=== PATIENT | female | born 1945 | race Hispanic/Latino ===

== ENCOUNTER 2018-12-09 18:25 | Inpatient (IN) | payer MEDICARE ==
[2018-12-09] MEDS ORDERED: Metoprolol Tartrate 5 MG/5 ML VIAL ONE ×2 (18:41→20:18)
[2018-12-09 18:57] LABS: #Basophils 0.1 thou/uL (0.0-0.2); #Eosinphils 0.1 thou/uL (0.0-0.7); #Lymphocytes 1.7 thou/uL (1.20-3.40); #Monocytes 0.7 thou/uL (0.11-0.59); #Neutrophils 14.1 thou/uL (1.40-6.50); %Basophils 0.4 % (0.0-1.0); %Eosinophils 0.5 % (0.0-10.0); %Lymphocytes 10.1 % (21.0-51.0); %Neutrophils 85.1 % (42.0-75.0); Hemoglobin 13.8 g/dL (12.0-16.0); Mean Corpuscular HGB CONC 32.8 g/dL (32.0-36.0); Mean Corpuscular Hemoglobin 29.8 pg (27.0-31.0); Mean Platelet Volume 9.8 fL (7.4-10.4); Platelet Count 232 thou/uL (130-400); RBC Distribution Width 12.6 % (11.5-14.5); Red Blood Cell (RBC) Count 4.62 mill/uL (4.20-5.40); White Blood Cell (WBC) Count 16.5 thou/uL (4.8-10.8)
[2018-12-09 19:17] LABS: ALT (SGPT) 10 U/L (8-55); AST (SGOT) 14 U/L (5-34); Albumin 4.6 g/dL (3.4-4.8); Alkaline Phosphatase 84 U/L (40-150); Anion Gap 19 mmol/L (10-20); BUN (Urea Nitrogen) 30 mg/dL (9.8-20.1); Bilirubin, Total 0.4 mg/dL (0.2-1.2); CK (CPK) 39 U/L (29-168); Calc. Creatinine Clearance 0 mL/min (70-130); Calcium 10.7 mg/dL (7.8-10.44); Carbon Dioxide 21 mmol/L (23-31); Chloride 100 mmol/L (98-107); Estimated GFR-MDRD 19; Globulin 3.3 g/dL (2.4-3.5); Glucose 206 mg/dL (83-110); Lipase 48 U/L (8-78); Potassium 4.4 mmol/L (3.5-5.1); Protein, Total 7.9 g/dL (6.0-8.3); Sodium 136 mmol/L (136-145)
--- NOTE | 2018-12-09 19:25 | RAD ---
PORTABLE CHEST: History: Chest pain, hypotension. Comparison: 06-13-17 FINDINGS: Heart size is enlarged. There are arthrosclerotic changes of the aorta. The lungs are clear of infilt rates. There are no signs of failure. IMPRESSION: Mild cardiomegaly. POS: H
[2018-12-09] MEDS ORDERED: Famotidine/PF 20 mg/2ml Vial ONE (21:04)
[2018-12-09] MEDS ORDERED: Ondansetron PF 4 MG/2 ML Vial ONE (21:47)
[2018-12-09 22:13] LABS: Troponin I 0.087 ng/mL (< 0.028)
[2018-12-09] MEDS ORDERED: Acetaminophen 325 MG TAB PO PRN (23:07)
[2018-12-09 23:11] VITALS: BMI 24.3
[2018-12-09 23:33] LABS: Lactic Acid 1.5 mmol/L (0.5-2.2)
[2018-12-09] MEDS: Diltiazem 125 MG in Sodium Chloride 0.9% 100 ML IVPB SCH (23:52)
[2018-12-10 00:54] LABS: Troponin I 0.257 ng/mL (< 0.028)
[2018-12-10] MEDS ORDERED: Dextrose 50% Abboject 50 ML SYRINGE SLOW IVP PRN (03:52)
[2018-12-10] MEDS ORDERED: Dextrose 5% in Water 1,000 ML IV PRN (03:52)
--- NOTE | 2018-12-10 04:50 | HP ---
PRIMARY CARE DOCTOR: Dr. Justin Zurita. CODE STATUS: DNR/DNI. TIME OF EVALUATION: 8:40 p.m. CHIEF COMPLAINT: Nausea and vomiting. HISTORY OF PRESENT ILLNESS: This 73-year-old female patient with past medical history of coronary artery disease, diabetes, hyperlipidemia, high cholesterol, and hypertension, came to the hospital after having nausea and vomiting associated with fatigue with no clear triggers, no alleviating factors. Symptoms are generalized, reported as moderate. REVIEW OF SYSTEMS: CONSTITUTIONAL: The patient had no fever, reported chills, generalized weakness. RESPIRATORY: No cough, sputum production, shortness of breath. CARDIOVASCULAR: No chest pain or palpitation. GASTROINTESTINAL: The patient has nausea and vomiting. No diarrhea. No abdominal pain. EMANATIONS ANALYSIS TECHNICIAN: No dizziness headache, or feeling lightheaded. GENITOURINARY: No burning on urination. EXTREMITIES: No leg swelling. All other systems were reviewed and negative except for the findings mentioned above. PAST MEDICAL HISTORY: As mentioned in the HPI. FAMILY HISTORY: Reviewed and non contributory to current presentation. SOCIAL HISTORY: No alcohol, no drugs, no smoking history. SURGICAL HISTORY: The patient has bilateral stent with repair, cholecystectomy. PSYCH HISTORY: No previous psych history. KNOWN ALLERGIES: No known drug allergies reported. MEDICATIONS: 1. Pravastatin. 2. Metformin. 3. Lisinopril. 4. Aspirin. PHYSICAL EXAMINATION: VITAL SIGNS: On presentation, blood pressure 109/79 with heart rate 157, respiratory rate was 20, temperature 97.3. Pain was 5/10. Oxygen saturation was 96% on room air. Initial presentation, blood pressure was 85/62. GENERAL APPEARANCE: The patient is alert, oriented, not in acute distress. HEENT: Eyes, normal conjunctiva. Moist oral mucosa. Anicteric. No JVD. RESPIRATORY: Bilateral air entry. No rales. No wheezes. Symmetric expansion. CARDIOVASCULAR: The patient has tachycardia, irregular rhythm. No murmurs, no gallops. No edema. ABDOMEN: Soft. Normal bowel sounds. MUSCULOSKELETAL: Baseline range of motion and strength. No tenderness. SKIN: Warm, intact. No pallor. No rash. No redness. Peripheral pulses are present. Capillary refill seems to be intact. NEURO: No evidence of any new focal weakness. Baseline speech. Cranial nerves seems to be intact. PSYCH: The patient is in good mood. No anxiety. Optimal judgment. DIAGNOSTIC DATA: EKG was reviewed. The patient has atrial fibrillation with rapid ventricular response at the rate of 150, ND undetermined, QRS 78, and QT corrected 470. The patient also has ST depression in lateral leads with some T-wave inversion, likely related to rates. Chest x-ray was reviewed. The patient has mild cardiomegaly. LABORATORY DATA: Labs were reviewed. The patient has white count 16.5, hemoglobin 13.8, MCV 91, platelet count 232. Chemistry; sodium 136, potassium 4.4, chloride 100, carbon dioxide was 21, anion gap 19, BUN 30, creatinine 2.44, previous creatinine was 2.22. The lactic acid initially was 3.7 and the second one was 1.5. LFTs were negative. Troponin was initially 0.021, the second one 0.087, the third one 0.257. Serum total protein 7.9. Beta-natriuretic peptide 905. Lipase was normal. Albumin 4.6. ASSESSMENT AND PLAN: The patient was placed in the hospital with following medical problems: 1. Atrial fibrillation with rapid ventricular response: The patient has been started on Cardizem drip, we will monitor. It has been difficult to control the rate of the patient. Cardiology consult, echo in the morning. 2. Leukocytosis, unclear etiology, no evidence of infection at this point. We will monitor closely. If there is any evidence of infection, we will treat. 3. Initial presentation with lactic acidosis of 3.7, came down to 1.5. The patient was hypotensive on presentation. This has not happened anymore, we will monitor. We will treat accordingly. 4. Chronic kidney disease. Creatinine is about the same range as in previous admissions. We will monitor kidney function. Might need Nephro if it gets worse. 5. Uncontrolled diabetes with blood sugar of 206. Hyperglycemia, we will place the patient on sliding scale for optimal control of the blood sugar. 6. Ylo-[id number] myocardial infarction, likely [id number] myocardial infarction type 2. The patient has leak of troponin likely secondary to underlying arrhythmias and demand ischemia. We will monitor. We will treat accordingly. 7. Hyperlipidemia, reconcile home medications. Low-cholesterol diet is advised. 8. Hypertension, has been uncontrolled and labile and usually with some hypotension. The patient is on Cardizem drip now. This will need to be reassessed when the patient is off the drip. For now, we will put the blood pressure medications on hold. 9. Deep venous thrombosis prophylaxis. Job ID: [id number] MTDD
[2018-12-10 06:27] LABS: #Eosinphils 0.2 thou/uL (0.0-0.7); #Lymphocytes 1.7 thou/uL (1.20-3.40); #Monocytes 0.5 thou/uL (0.11-0.59); #Neutrophils 5.2 thou/uL (1.40-6.50); %Basophils 0.6 % (0.0-1.0); %Eosinophils 2.3 % (0.0-10.0); %Lymphocytes 21.8 % (21.0-51.0); %Neutrophils 68.3 % (42.0-75.0); Mean Corpuscular HGB CONC 33.5 g/dL (32.0-36.0); Mean Corpuscular Hemoglobin 30.2 pg (27.0-31.0); Mean Corpuscular Volume 90.3 fL (78.0-98.0); Mean Platelet Volume 9.8 fL (7.4-10.4); Platelet Count 176 thou/uL (130-400); RBC Distribution Width 12.4 % (11.5-14.5); Red Blood Cell (RBC) Count 3.63 mill/uL (4.20-5.40); White Blood Cell (WBC) Count 7.7 thou/uL (4.8-10.8)
[2018-12-10 06:48] LABS: Anion Gap 15 mmol/L (10-20); BUN (Urea Nitrogen) 32 mg/dL (9.8-20.1); Calc. Creatinine Clearance 20 mL/min (70-130); Calcium 9.2 mg/dL (7.8-10.44); Carbon Dioxide 21 mmol/L (23-31); Chloride 106 mmol/L (98-107); Estimated GFR-MDRD 21; Glucose 100 mg/dL (83-110); Potassium 4.8 mmol/L (3.5-5.1); Sodium 137 mmol/L (136-145)
[2018-12-10] MEDS ORDERED: Aspirin 325 MG TAB PO SCH (08:00)
[2018-12-10] MEDS ORDERED: Enoxaparin Sodium 40 MG/0.4 ML SYRINGE SC SCH (09:00)
[2018-12-10] MEDS: Atorvastatin Calcium 10 MG TAB PO SCH (09:43)
--- NOTE | 2018-12-10 11:29 | PDOC.PN ---
- Subjective Encounter Start Date: 12/10/18 Encounter Start Time: 11:05 Subjective: Patient resting comfortably. Denies any complaints. -: Feels back to baseline. No further lightheadedness/dizziness. -: Episode of loose stool this morning. No n/v. No abdo pain. Has been afebrile. Reports yesterday she felt completely well in herself until told she had the incorrect information when picking up a certificate for her family member. States she immediately felt unwell. Presyncope, vomited x 1 at the facility, [facility]. Had trouble with her vision and feeling lightheaded. No HEADLEY. No Chest pain. Reports feeling unwell the entire drive. Vomited twice en route home. Upon arriving at home was very weak and lethargic. She was falling asleep while examined by daughter who is an RN. Reportedly her HR was elevated and her O2 sat was low prompting her to seek medical attention. - Objective Resuscitation Status - Order Detail: 12/09/18 23:07 Resuscitation Status Routine Resuscitation Status: DNAR: NO Resuscitation Discussed with: discussed with family and patient Vital Signs & Weight: Vital Signs (12 hours) Temp Pulse Resp BP BP Pulse Ox 12/10/18 08:15 94 14 110/57 L 94 L 12/10/18 04:37 98.9 F 86 13 111/57 L 96 12/09/18 23:52 147 H 111/77 Weight Weight 128 lb 14.4 oz I&O: 12/09/18 12/10/18 12/11/18 06:59 06:59 06:59 Intake Total 151.4 Output Total 200 Balance -48.6 Result Diagrams: 12/10/18 05:07 12/10/18 05:07 Additional Labs: Accuchecks 12/10/18 04:52 POC Glucose 97 Phys Exam - Physical Examination Constitutional: NAD HEENT: PERRLA, moist MMs, oral pharynx no lesions Neck: no nodes, no JVD, supple, full ROM Respiratory: no wheezing, no rales, no rhonchi, clear to auscultation bilateral Cardiovascular: RRR, no significant murmur Gastrointestinal: soft, non-tender, no distention, positive bowel sounds Musculoskeletal: no edema, pulses present Neurological: normal sensation, moves all 4 limbs Lymphatic: no nodes Psychiatric: normal affect, A&O x 3 Skin: no rash, normal turgor Dx/Plan (1) A-fib Code(s): I48.91 - UNSPECIFIED ATRIAL FIBRILLATION Status: Acute (2) Tachycardia Code(s): R00.0 - TACHYCARDIA, UNSPECIFIED Status: Resolved (3) Atrial fibrillation with RVR Code(s): I48.91 - UNSPECIFIED ATRIAL FIBRILLATION Status: Chronic (4) Diabetes Code(s): E11.9 - TYPE 2 DIABETES MELLITUS WITHOUT COMPLICATIONS Status: Chronic (5) Hypertension Code(s): I10 - ESSENTIAL (PRIMARY) HYPERTENSION Status: Chronic (6) Hyperlipidemia Code(s): E78.5 - HYPERLIPIDEMIA, UNSPECIFIED Status: Chronic - Plan cont current plan of care, plan discussed w/ family Leukocytosis resolved. Afebrile and with negative BCx. Monitor. -: HR has settled. BNP 905.8 S/p Echo, awaiting Cardiology review. -: BP controlled, continue to monitor. -: Gentle IV hdyration. Monitor glucose. -: Check Mg+, lipid panel and TSH. To be discussed with Dr. Foley for further recommendations. ADDENDUM: Per discussion with Dr. Foley, given [id number] Score of 5, will increase prophylactic dose of Lovenox to 60 mg SC BID (weight 58 kg). Patient feeling well and awaiting Cardiology review.
[2018-12-10] MEDS ORDERED: Ondansetron PF 4 MG/2 ML Vial IVP PRN (11:40)
[2018-12-10] MEDS ORDERED: Ondansetron ODT 4 MG TAB PO PRN (11:40)
[2018-12-10 12:16] LABS: Cardiac Risk 3.4 (Less than 4.5); Magnesium 1.6 mg/dL (1.6-2.6)
[2018-12-10] MEDS: Sodium Chloride 0.9% 1,000 ML IV SCH (13:00)
[2018-12-10 13:26] LABS: Bilirubin Small (Negative); Blood, Urine Negative (Negative); Clarity CLEAR (Clear); Glucose, Urine (Dipstick) Negative (Negative); Leukocyte Moderate (Negative); Nitrite Negative (Negative); Protein, Urine (Dipstick) Trace mg/dL (Neg-Trace); Specific Gravity, Urine 1.018 (1.002-1.036)
[2018-12-10 13:27] LABS: Bacteria/HPF None Seen HPF (None Seen); Hyaline Casts/LPF 7-10 HYALINE CAST LPF (0-3 Hyaline); Pathc Cast-AUWi Flag 1.01 (0-2.49)
[2018-12-10 13:44] LABS: Renal Epithelial None Seen HPF (0-3); Transitional Epithelial NONE SEEN HPF (0-3)
[2018-12-10 13:46] LABS: Urine Culture Reflex No No
--- NOTE | 2018-12-10 14:35 | PDOC.EVN ---
Event Note - Event Note Event Note: pt seen and discussed w PHILL Ms ankita cont CCB drip.HD stable HR better controlled. ECHO and cardiology consult awaited will likley need OAC given high CHADS-vasc2 score.defer to cardiology.on full dose ASA and Statin
[2018-12-10] MEDS: HumaLOG 300 UNITS/3 ML VIAL SC PRN (18:21)
[2018-12-10] MEDS ORDERED: Enoxaparin Sodium 60 MG/0.6 ML SYRINGE SC SCH ×2 (21:00)
[2018-12-10] MEDS ORDERED: Dronedarone HCl 400 MG TAB PO SCH (21:15)
[2018-12-10] MEDS: Diltiazem 125 MG in Sodium Chloride 0.9% 100 ML IVPB SCH (22:37)
--- NOTE | 2018-12-11 00:49 | CON ---
DATE OF CONSULTATION: HISTORY OF PRESENT ILLNESS: Skye Boyd is a pleasant 73-year-old female with history of significant peripheral vascular disease with multiple procedures by Dr. Payne in the past. She states she has never had any cardiac problems, has never had coronary artery disease or any type of procedure done on her heart, just in her peripheral vessels. Yesterday, a little before noon, she had an onset of nausea, vomiting, fatigue and extreme weakness. The daughter states that she looked very pale. She was brought to the emergency room and found to be in atrial fibrillation with fast ventricular response of 150 per minute. She denied any chest discomfort or shortness of breath. She also denied any palpitations. PAST MEDICAL HISTORY: Hypertension. Hypercholesterolemia. Diabetes. Obesity. Peripheral vascular disease. MEDICATIONS: 1. Aspirin 325 daily. 2. Lisinopril/hydrochlorothiazide 20 daily. 3. Metformin 1000 mg b.i.d. 4. Pravastatin 40 at bedtime. PAST SURGICAL HISTORY: Multiple stent procedures on her legs by Dr. Payne, cholecystectomy. SOCIAL HISTORY: She stopped smoking 20 years ago. She does not drink alcohol. REVIEW OF SYSTEMS: A 12-point review of systems is otherwise unremarkable. ALLERGIES: NONE. PHYSICAL EXAMINATION: VITAL SIGNS: Blood pressure 129/68, pulse of 87, irregularly irregular. She is on a Cardizem drip. HEENT: PERRL. NECK: Supple. CHEST: Clear. CARDIAC: S1 and S2 normal without any S3, S4 or murmurs. ABDOMEN: Obese. Normal bowel sounds. No tenderness or organomegaly. EXTREMITIES: Revealed no clubbing, cyanosis, or edema. NEUROLOGICAL: Grossly intact. SKIN: Warm and dry. IMAGING: EKG revealed atrial fibrillation with a rate of 150 per minute with anterolateral T-wave changes. No repeat EKG has been performed. LABORATORY DATA: Sodium 137, potassium 4.8, chloride 106, carbon dioxide 21, BUN 32, creatinine 2.27. Cholesterol 151, triglycerides 143, HDL 44, LDL 78. TSH is normal. Troponin I 0.257. BNP 905.8. IMPRESSION: 1. Atrial fibrillation with rapid ventricular response. This appears to be new onset and apparently she has never had this in the past. 2. Significant peripheral vascular disease, status post multiple procedures by Dr. Payne. 3. Hypercholesterolemia, poorly control with an LDL of 78. 4. Chronic kidney disease. 5. Diabetes. 6. Hypertension. 7. Demand ischemia. 8. Former smoker. PLAN: Echocardiogram will be performed. She will be started on Xarelto 15 mg daily for stroke prophylaxis. Aspirin dose reduced to 81 mg. She will be loaded with Multaq and consideration will be given to electrocardioversion in 2 to 3 days after she has been loaded. EKG will be repeated. Job ID: [id number] MTDD
[2018-12-11 05:47] LABS: #Eosinphils 0.2 thou/uL (0.0-0.7); #Lymphocytes 1.5 thou/uL (1.20-3.40); #Monocytes 0.4 thou/uL (0.11-0.59); #Neutrophils 2.7 thou/uL (1.40-6.50); %Basophils 0.3 % (0.0-1.0); %Eosinophils 4.8 % (0.0-10.0); %Lymphocytes 30.6 % (21.0-51.0); %Monocytes 7.5 % (0.0-10.0); %Neutrophils 56.8 % (42.0-75.0); Hemoglobin 9.7 g/dL (12.0-16.0); Mean Corpuscular HGB CONC 32.9 g/dL (32.0-36.0); Mean Corpuscular Hemoglobin 30.3 pg (27.0-31.0); Mean Corpuscular Volume 92.1 fL (78.0-98.0); Mean Platelet Volume 9.5 fL (7.4-10.4); Platelet Count 138 thou/uL (130-400); RBC Distribution Width 12.4 % (11.5-14.5); Red Blood Cell (RBC) Count 3.19 mill/uL (4.20-5.40); White Blood Cell (WBC) Count 4.8 thou/uL (4.8-10.8)
[2018-12-11 06:08] LABS: ALT (SGPT) Less than 7 U/L (8-55); AST (SGOT) 11 U/L (5-34); Albumin 3.3 g/dL (3.4-4.8); Alkaline Phosphatase 56 U/L (40-150); Anion Gap 13 mmol/L (10-20); BUN (Urea Nitrogen) 31 mg/dL (9.8-20.1); Bilirubin, Total 0.3 mg/dL (0.2-1.2); Calc. Creatinine Clearance 0 mL/min (70-130); Calcium 8.9 mg/dL (7.8-10.44); Carbon Dioxide 20 mmol/L (23-31); Chloride 109 mmol/L (98-107); Estimated GFR-MDRD 28; Globulin 2.2 g/dL (2.4-3.5); Glucose 117 mg/dL (83-110); Potassium 4.2 mmol/L (3.5-5.1); Protein, Total 5.5 g/dL (6.0-8.3); Sodium 138 mmol/L (136-145)
[2018-12-11] MEDS: Sodium Chloride 0.9% 1,000 ML IV SCH (07:52)
[2018-12-11] MEDS ORDERED: Famotidine/PF 20 mg/2ml Vial SLOW IVP SCH (09:00)
[2018-12-11] MEDS: Atorvastatin Calcium 10 MG TAB PO SCH (09:27)
[2018-12-11] MEDS: Aspirin 81 mg Enteric Coated Tablet PO SCH (09:27)
[2018-12-11] MEDS: Dronedarone HCl 400 MG TAB PO SCH ×2 (09:27→17:27)
[2018-12-11] MEDS: Rivaroxaban 15 MG TAB PO SCH (09:27)
--- NOTE | 2018-12-11 10:38 | PDOC.PN ---
- Subjective Encounter Start Date: 12/11/18 Encounter Start Time: 09:30 Subjective: Patient examined, reports she got up to the bathroom -: and got a little winded. Refused the walking program. -: Denies chest pain, palpations. - Objective Resuscitation Status - Order Detail: 12/11/18 00:48 Resuscitation Status Routine Resuscitation Status: FULL: Full Resuscitation Vital Signs & Weight: Vital Signs (12 hours) Temp Pulse Resp BP BP Pulse Ox 12/11/18 07:50 98.5 F 75 12 106/66 99 12/11/18 04:00 97.8 F 78 16 98/57 L 98 12/10/18 23:47 98.1 F 83 18 108/59 L 98 Weight Weight 123.3 g I&O: 12/10/18 12/11/18 12/12/18 06:59 06:59 06:59 Intake Total 151.4 2406 412 Output Total 200 600 Balance -48.6 1806 412 Result Diagrams: 12/11/18 04:38 12/11/18 04:38 Additional Labs: Accuchecks 12/11/18 12/10/18 12/10/18 05:54 20:06 17:03 POC Glucose 118 H 148 H 202 H 12/10/18 12:05 POC Glucose 143 H Phys Exam - Physical Examination HEENT: PERRLA, moist MMs Neck: no nodes, no JVD Respiratory: clear to auscultation bilateral Cardiovascular: RRR, no significant murmur Gastrointestinal: soft, non-tender Musculoskeletal: no edema, pulses present Neurological: non-focal, normal sensation Lymphatic: no nodes Psychiatric: normal affect, A&O x 3 Skin: no rash, normal turgor Dx/Plan (1) Atrial fibrillation with RVR Code(s): I48.91 - UNSPECIFIED ATRIAL FIBRILLATION Status: Acute (2) Diabetes Code(s): E11.9 - TYPE 2 DIABETES MELLITUS WITHOUT COMPLICATIONS Status: Chronic (3) Hyperlipidemia Code(s): E78.5 - HYPERLIPIDEMIA, UNSPECIFIED Status: Chronic (4) Hypertension Code(s): I10 - ESSENTIAL (PRIMARY) HYPERTENSION Status: Chronic - Plan Patient is still on a cardizem drip, Dr. Moon added Multaq -: He is considering cardioversion if medications do not improve RVR -: We will continue to follow with cardiology -: Will repeat labs, monitor VS * .Addendum by Dr. Foley(late entry) * pt seen & examined by myself. Discussed w Ms DE LEON,FOOD CONSULTANT. Agree as above
[2018-12-11] MEDS: HumaLOG 300 UNITS/3 ML VIAL SC PRN (13:51)
[2018-12-12] MEDS: Diltiazem 125 MG in Sodium Chloride 0.9% 100 ML IVPB SCH (02:25)
[2018-12-12] MEDS: Sodium Chloride 0.9% 1,000 ML IV SCH ×2 (02:25→22:42)
[2018-12-12] MEDS: Rivaroxaban 15 MG TAB PO SCH (08:40)
[2018-12-12] MEDS: Atorvastatin Calcium 10 MG TAB PO SCH (08:40)
[2018-12-12] MEDS: Dronedarone HCl 400 MG TAB PO SCH ×2 (08:40→17:38)
[2018-12-12] MEDS: Aspirin 81 mg Enteric Coated Tablet PO SCH (08:40)
--- NOTE | 2018-12-12 12:03 | PDOC.CTH ---
Cardiology Progress Note - Subjective The pt seen and examined. NO overnight events. No cardiac complaints. - Objective Vital Signs Temp Pulse Resp BP Pulse Ox 12/12/18 04:18 98.1 F 76 18 115/76 97 Weight 4.349 oz 12/11/18 12/12/18 12/13/18 06:59 06:59 06:59 Intake Total 2406 2153 Output Total 600 1400 Balance 1806 753 - Physical Examination General/Neuro: alert & oriented x3 Neck: no JVD present Lungs: CTA Heart: other: (Irregular) Abdomen: soft Extremities: other: - Telemetry Telemetry Rhythm: No edema - Labs Result Diagrams: 12/11/18 04:38 12/11/18 04:38 Troponin/CKMB Troponin I 0.257 ng/mL (< 0.028) H 12/10/18 00:19 - Assessment/Plan 1. Afib with RVR - well controlled HR with Multaq; on Xarelto 15mg; Plan for JOSE LUIS /DCCV on Friday by Dr Moon 2. PVD with multiple procedures - stable 3. HTN - stable 4. CKD - improving 5. DM type 2 - managed by PCP 6. Hyperlipidemia - on Lipitor 10mg qd MAR reviewed * Echo on 12/10/2018 - EF 55-60%, mild MR, mild dilated LA, and mild TR * Plan for JOSE LUIS/DCCV on Friday by Dr Moon Review of Systems - Review of Systems Constitutional: reports: no symptoms reported EENTM: reports: no symptoms reported Respiratory: reports: no symptoms reported Cardiac (ROS): reports: no symptoms reported ABD/GI: reports: no symptoms reported : reports: no symptoms reported Musculoskeletal: reports: no symptoms reported Skin: reports: no symptoms reported
--- NOTE | 2018-12-12 13:59 | PDOC.PN ---
- Subjective Encounter Start Date: 12/12/18 Encounter Start Time: 13:57 Subjective: feels well. no new complaints - Objective Resuscitation Status - Order Detail: 12/11/18 00:48 Resuscitation Status Routine Resuscitation Status: FULL: Full Resuscitation MAR Reviewed: Yes Vital Signs & Weight: Vital Signs (12 hours) Temp Pulse Resp BP Pulse Ox 12/12/18 12:00 98 F 88 16 110/63 100 12/12/18 04:18 98.1 F 76 18 115/76 97 Weight Weight 4.349 oz I&O: 12/11/18 12/12/18 12/13/18 06:59 06:59 06:59 Intake Total 2406 2153 Output Total 600 1400 Balance 1806 753 Result Diagrams: 12/11/18 04:38 12/11/18 04:38 Additional Labs: Accuchecks 12/12/18 12/12/18 12/11/18 10:47 05:29 20:52 POC Glucose 141 H 108 142 H 12/11/18 17:05 POC Glucose 100 Microbiology 12/09/18 19:33 Venous blood - Right Arm Blood Culture - Preliminary Specimen has been received and culture in progress. No Growth to date. 12/09/18 19:33 Venous blood - Right Arm Blood Culture - Preliminary NO GROWTH AT 48 HOURS 12/09/18 18:39 Venous blood - Right Arm Blood Culture - Preliminary Specimen has been received and culture in progress. No Growth to date. 12/09/18 18:39 Venous blood - Right Arm Blood Culture - Preliminary NO GROWTH AT 48 HOURS Laboratory Tests 12/09/18 12/09/18 12/10/18 18:39 21:37 00:19 Troponin I 0.021 0.087 H 0.257 H Phys Exam - Physical Examination Constitutional: NAD HEENT: PERRLA, moist MMs, sclera anicteric, TM's clear, oral pharynx no lesions , 2+ tonsils Neck: no nodes, no JVD, supple, full ROM Respiratory: no wheezing, no rales, no rhonchi Cardiovascular: RRR, no significant murmur, irregular Gastrointestinal: soft, non-tender, no distention, positive bowel sounds Musculoskeletal: no edema, pulses present Neurological: non-focal, normal sensation, moves all 4 limbs Psychiatric: normal affect, A&O x 3 Skin: no rash Dx/Plan (1) Atrial fibrillation with RVR Code(s): I48.91 - UNSPECIFIED ATRIAL FIBRILLATION Status: Acute Comment: rate controlled w Multaq .on .DCCV on Friday (2) Diabetes Code(s): E11.9 - TYPE 2 DIABETES MELLITUS WITHOUT COMPLICATIONS Status: Chronic (3) Hyperlipidemia Code(s): E78.5 - HYPERLIPIDEMIA, UNSPECIFIED Status: Chronic (4) Hypertension Code(s): I10 - ESSENTIAL (PRIMARY) HYPERTENSION Status: Chronic - Plan DVT proph w/SCDs HD stable. Cont meds as above -: CV friday per cardiology -: ECHO w adequate EF * . Review of Systems - Review of Systems Constitutional: negative: fever, chills, sweats, weakness, malaise, other ENT: negative: Ear Pain, Ear Discharge, Nose Pain, Nose Discharge, Nose Congestion, Mouth Pain, Mouth Swelling, Throat Pain, Throat Swelling, Other Respiratory: negative: Cough, Dry, Shortness of Breath, Hemoptysis, SOB with Excertion, Pleuritic Pain, Sputum, Wheezing Cardiovascular: negative: chest pain, palpitations, orthopnea, paroxysmal nocturnal dyspnea, edema, light headedness, other Gastrointestinal: negative: Nausea, Vomiting, Abdominal Pain, Diarrhea, Constipation, Melena, Hematochezia, Other Genitourinary: negative: Dysuria, Frequency, Incontinence, Hematuria, Retention , Other Musculoskeletal: negative: Neck Pain, Shoulder Pain, Arm Pain, Back Pain, Hand Pain, Leg Pain, Foot Pain, Other Neurological: negative: Weakness, Numbness, Incoordination, Change in Speech, Confusion, Seizures, Other - Medications/Allergies Allergies/Adverse Reactions: Allergies Allergy/AdvReac Type Severity Reaction Status Date / Time clopidogrel [From Plavix] Allergy Rash Verified 12/09/18 23:27 Medications: Current Medications Acetaminophen (Tylenol) 650 mg PO Q4H PRN PRN Reason: Headache/Fever/Mild Pain (1-3) Aspirin (Ecotrin) 81 mg PO DAILY [facility] Last Admin: 12/12/18 08:40 Dose: 81 mg Atorvastatin Calcium (Lipitor) 10 mg PO DAILY [facility] Last Admin: 12/12/18 08:40 Dose: 10 mg Dextrose/Water (Dextrose 50%) 25 gm SLOW IVP PRN PRN PRN Reason: Hypoglycemia Dronedarone (Multaq) 400 mg PO BID-[facility] Last Admin: 12/12/18 08:40 Dose: 400 mg Glucagon (Glucagon) 1 mg IM PRN PRN PRN Reason: Hypoglycemia Dextrose/Water (D5w) 1,000 mls @ 0 mls/hr IV .Q0M PRN PRN Reason: Hypoglycemia Sodium Chloride (Normal Saline 0.9%) 1,000 mls @ 55 mls/hr IV .[id number] [facility] Last Admin: 12/12/18 02:25 Dose: 1,000 mls Insulin Human Lispro (Humalog) 0 units SC .MILD SLIDING SCALE PRN PRN Reason: Mild Correctional Scale Last Admin: 12/11/18 13:51 Dose: 3 unit Ondansetron HCl (Zofran Odt) 4 mg PO Q6H PRN PRN Reason: Nausea/Vomiting Ondansetron HCl (Zofran) 4 mg IVP Q6H PRN PRN Reason: Nausea/Vomiting Rivaroxaban (Xarelto) 15 mg PO DAILY [facility] Last Admin: 12/12/18 08:40 Dose: 15 mg
[2018-12-13 06:40] LABS: Anion Gap 8 mmol/L (10-20); BUN (Urea Nitrogen) 20 mg/dL (9.8-20.1); Calc. Creatinine Clearance 0 mL/min (70-130); Calcium 9.1 mg/dL (7.8-10.44); Carbon Dioxide 24 mmol/L (23-31); Chloride 111 mmol/L (98-107); Estimated GFR-MDRD 37; Glucose 108 mg/dL (83-110); Potassium 4.4 mmol/L (3.5-5.1); Sodium 139 mmol/L (136-145)
[2018-12-13] MEDS: Dronedarone HCl 400 MG TAB PO SCH ×2 (09:21→17:26)
[2018-12-13] MEDS: Aspirin 81 mg Enteric Coated Tablet PO SCH (09:22)
[2018-12-13] MEDS: Atorvastatin Calcium 10 MG TAB PO SCH (09:22)
[2018-12-13] MEDS: Rivaroxaban 15 MG TAB PO SCH (09:22)
--- NOTE | 2018-12-13 11:26 | PDOC.CTH ---
Cardiology Progress Note - Subjective The pt seen and examined. No overnight events. No cardiac complaints. - Objective Vital Signs Temp Pulse Resp BP Pulse Ox 12/13/18 07:57 98.7 F 77 16 177/84 H 94 L 12/13/18 03:59 98 F 80 17 160/75 H 96 Weight 4.349 oz 12/12/18 12/13/18 12/14/18 06:59 06:59 06:59 Intake Total 2153 3317 Output Total 1400 1500 Balance 753 1817 - Physical Examination General/Neuro: alert & oriented x3 Neck: no JVD present Lungs: CTA Heart: RRR Abdomen: soft Extremities: other: (No edema) - Telemetry Telemetry Rhythm: SR - Labs Result Diagrams: 12/11/18 04:38 12/13/18 05:02 Troponin/CKMB Troponin I 0.257 ng/mL (< 0.028) H 12/10/18 00:19 - Assessment/Plan 1. Afib with RVR - Converted back to SR on 12/12/2018 afternoon; On Multaq and on Xarelto 15mg; Plan for JOSE LUIS/DCCV on Friday by Dr Mono 2. PVD with multiple procedures - stable 3. HTN - Start Coreg 6.25mg BID from today for HTN and Afib. Holding MENA for now for FARHAT on CKD 4. CKD - improving 5. DM type 2 - managed by PCP 6. Hyperlipidemia - on Lipitor 10mg qd MAR reviewed * Echo on 12/10/2018 - EF 55-60%, mild MR, mild dilated LA, and mild TR * Plan for JOSE LUIS/DCCV on Friday by Dr Moon Pt. seen and eval. by me. She has converted to NSR and remains in NSR. She feels better, no complaints. Chest clear. RRR.I agree with the above assessment. Review of Systems - Review of Systems Constitutional: reports: no symptoms reported EENTM: reports: no symptoms reported Respiratory: reports: no symptoms reported Cardiac (ROS): reports: no symptoms reported ABD/GI: reports: no symptoms reported : reports: no symptoms reported
[2018-12-13] MEDS ORDERED: Carvedilol 6.25 MG TAB PO SCH (12:00)
[2018-12-13] MEDS ORDERED: hydrALAZINE 20 MG/ML VIAL SLOW IVP PRN (12:09)
[2018-12-13] MEDS ORDERED: Lisinopril 10 MG TAB PO SCH (12:15)
[2018-12-13] MEDS: HumaLOG 300 UNITS/3 ML VIAL SC PRN (12:20)
--- NOTE | 2018-12-13 12:21 | PDOC.PN ---
- Subjective Encounter Start Date: 12/13/18 Encounter Start Time: 12:20 Subjective: feels well. eager to go home -: no new complaints -: remains in sinus rythm - Objective Resuscitation Status - Order Detail: 12/11/18 00:48 Resuscitation Status Routine Resuscitation Status: FULL: Full Resuscitation MAR Reviewed: Yes Vital Signs & Weight: Vital Signs (12 hours) Temp Pulse Resp BP Pulse Ox 12/13/18 11:28 97.9 F 84 18 182/79 H 99 12/13/18 07:57 98.7 F 77 16 177/84 H 94 L 12/13/18 03:59 98 F 80 17 160/75 H 96 Weight Weight 4.349 oz I&O: 12/12/18 12/13/18 12/14/18 06:59 06:59 06:59 Intake Total 2153 3317 Output Total 1400 1500 Balance 753 1817 Result Diagrams: 12/11/18 04:38 12/13/18 05:02 Additional Labs: Accuchecks 12/13/18 12/13/18 12/12/18 10:55 05:03 20:30 POC Glucose 188 H 112 H 144 H 12/12/18 16:20 POC Glucose 103 Microbiology 12/09/18 19:33 Venous blood - Right Arm Blood Culture - Preliminary NO GROWTH AT 48 HOURS 12/09/18 18:39 Venous blood - Right Arm Blood Culture - Preliminary NO GROWTH AT 48 HOURS Phys Exam - Physical Examination Constitutional: NAD HEENT: PERRLA, moist MMs, sclera anicteric, oral pharynx no lesions Neck: no nodes, no JVD, supple, full ROM Respiratory: no wheezing, no rales, no rhonchi, clear to auscultation bilateral Cardiovascular: RRR, no significant murmur, no rub Gastrointestinal: soft, non-tender, no distention, positive bowel sounds Musculoskeletal: no edema, pulses present Neurological: non-focal, normal sensation, moves all 4 limbs Psychiatric: normal affect, A&O x 3 Skin: no rash Dx/Plan (1) Atrial fibrillation with RVR Code(s): I48.91 - UNSPECIFIED ATRIAL FIBRILLATION Status: Acute Comment: Sinus rythm since yesterday afternoon. On Multaq & on eliquis. (2) Diabetes Code(s): E11.9 - TYPE 2 DIABETES MELLITUS WITHOUT COMPLICATIONS Status: Chronic (3) Hyperlipidemia Code(s): E78.5 - HYPERLIPIDEMIA, UNSPECIFIED Status: Chronic (4) Hypertension Code(s): I10 - ESSENTIAL (PRIMARY) HYPERTENSION Status: Chronic - Plan DVT proph w/SCDs BP high. started on Coreg today . will add low dose lisinopril as Cr better -: no HCTZ .pt has CKD. -: awaiting final Cardiology recs.original plans for DCCV tomorrow but NSR now -: Hd stable * . Review of Systems - Review of Systems Constitutional: negative: fever, chills, sweats, weakness, malaise, other ENT: negative: Ear Pain, Ear Discharge, Nose Pain, Nose Discharge, Nose Congestion, Mouth Pain, Mouth Swelling, Throat Pain, Throat Swelling, Other Respiratory: negative: Cough, Dry, Shortness of Breath, Hemoptysis, SOB with Excertion, Pleuritic Pain, Sputum, Wheezing Cardiovascular: negative: chest pain, palpitations, orthopnea, paroxysmal nocturnal dyspnea, edema, light headedness, other Gastrointestinal: negative: Nausea, Vomiting, Abdominal Pain, Diarrhea, Constipation, Melena, Hematochezia, Other Genitourinary: negative: Dysuria, Frequency, Incontinence, Hematuria, Retention , Other Neurological: negative: Weakness, Numbness, Incoordination, Change in Speech, Confusion, Seizures, Other - Medications/Allergies Allergies/Adverse Reactions: Allergies Allergy/AdvReac Type Severity Reaction Status Date / Time clopidogrel [From Plavix] Allergy Rash Verified 12/09/18 23:27 Medications: Current Medications Acetaminophen (Tylenol) 650 mg PO Q4H PRN PRN Reason: Headache/Fever/Mild Pain (1-3) Aspirin (Ecotrin) 81 mg PO DAILY [facility] Last Admin: 12/13/18 09:22 Dose: 81 mg Atorvastatin Calcium (Lipitor) 10 mg PO DAILY [facility] Last Admin: 12/13/18 09:22 Dose: 10 mg Carvedilol (Coreg) 6.25 mg PO BID-[facility] Carvedilol (Coreg) 6.25 mg PO 1200 [facility] Stop: 12/13/18 13:00 Dextrose/Water (Dextrose 50%) 25 gm SLOW IVP PRN PRN PRN Reason: Hypoglycemia Dronedarone (Multaq) 400 mg PO BID-[facility] Last Admin: 12/13/18 09:21 Dose: 400 mg Glucagon (Glucagon) 1 mg IM PRN PRN PRN Reason: Hypoglycemia Hydralazine HCl (Apresoline) 10 mg SLOW IVP Q4H PRN PRN Reason: sbp>170 Dextrose/Water (D5w) 1,000 mls @ 0 mls/hr IV .Q0M PRN PRN Reason: Hypoglycemia Insulin Human Lispro (Humalog) 0 units SC .MILD SLIDING SCALE PRN PRN Reason: Mild Correctional Scale Last Admin: 12/11/18 13:51 Dose: 3 unit Lisinopril (Zestril) 5 mg PO BID [facility] Ondansetron HCl (Zofran Odt) 4 mg PO Q6H PRN PRN Reason: Nausea/Vomiting Ondansetron HCl (Zofran) 4 mg IVP Q6H PRN PRN Reason: Nausea/Vomiting Rivaroxaban (Xarelto) 15 mg PO DAILY [facility] Last Admin: 12/13/18 09:22 Dose: 15 mg
[2018-12-13] MEDS: Carvedilol 6.25 MG TAB PO SCH (17:26)
[2018-12-13] MEDS: Lisinopril 5 MG TAB PO SCH (20:02)
[2018-12-14] MEDS: Rivaroxaban 15 MG TAB PO SCH (09:06)
[2018-12-14] MEDS: Carvedilol 6.25 MG TAB PO SCH ×2 (09:06→17:56)
[2018-12-14] MEDS: Dronedarone HCl 400 MG TAB PO SCH ×2 (09:06→17:55)
[2018-12-14] MEDS: Aspirin 81 mg Enteric Coated Tablet PO SCH (09:07)
[2018-12-14] MEDS: Atorvastatin Calcium 10 MG TAB PO SCH (09:07)
[2018-12-14] MEDS: Lisinopril 5 MG TAB PO SCH (09:07)
[2018-12-14] MEDS: HumaLOG 300 UNITS/3 ML VIAL SC PRN (12:24)
--- NOTE | 2018-12-14 14:09 | PQF ---
CLINICAL DOCUMENTATION IMPROVEMENT CLARIFICATION FORM: ICD-10 Updated PLEASE DO AN ADDENDUM TO THE PROGRESS NOTE WITH ANY DOCUMENTATION UPDATES OR ADDITIONS AND CARRY THROUGH TO DC SUMMARY. THANK YOU. DATE: 12/14/18 ATTN : DR. QUIROGA Please exercise your independent, professional judgment in responding to the clarification form. Clinical indicators are provided on the bottom of this form for your review Please check appropriate box(s): AMI TYPE: [ ] NSTEMI [ ] TN Type II [ x] DEMAND ISCHEMIA [ ] Other In addition, please specify: Present on Admission (POA): [ x] Yes [ ] No [ ] Unable to determine CLINICAL INDICATORS - SIGNS / SYMPTOMS / LABS H&P: "[id number] MYOCARDIAL INFARCTION, LIKELY [id number] MYOCARDIAL INFARCTION TYPE 2. 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 All Rights Reserved CLARK [email or web address] Office: [phone] [facility]ENTER[facility]
[2018-12-14 16:06] VITALS: BP 135/63; TEMP 98.3
--- NOTE | 2018-12-15 07:13 | DIS ---
DATE OF ADMISSION: 12/11/2018 DATE OF DISCHARGE: 12/14/2018 PRIMARY CARE PROVIDER: Dr. Justin Zurita. FINAL DIAGNOSES: 1. Paroxysmal atrial fibrillation. 2. Hypertension. 3. Chronic anticoagulation. 4. Diabetes mellitus type 2 with chronic kidney disease 3. DISCHARGE MEDICATIONS: 1. Metformin 1000 mg twice a day. 2. Pravastatin 40 mg a day. 3. Xarelto 15 mg a day. 4. Lisinopril 5 mg twice a day. 5. Coreg 6.25 mg p.o. b.i.d. 6. Aspirin 81 mg a day. 7. Multaq 400 mg twice a day. ALLERGIES: PLAVIX. CODE STATUS: Full. PENDING AT TIME OF DISCHARGE: Nothing. DIET: Diabetic. HOSPITAL COURSE: The patient was admitted to [place] [facility] to [facility] with nausea and vomiting. She had a history of coronary artery disease, diabetes, dyslipidemia, and hypertension. The patient was found to be in atrial fibrillation with rapid ventricular response, rate of about 150. Chest x-ray showed cardiomegaly. Troponins were 0.021, 0.087, 0.257. Creatinine 2.44, BUN 30, CO2 of 21, potassium 4.4, sodium 136. CBC was unremarkable. She was seen in consultation by Dr. Tadeo Moon. Aspirin was reduced to 81 mg a day and Xarelto 50 started. Consideration of Multaq was made. Echo revealed an EF of 55% to 60%. Mild MR. Still in atrial fibrillation, rate was controlled on Multaq. On 12/13/2018, she converted to normal sinus rhythm. Coreg was started for hypertension. MENA was decreased due to her chronic kidney disease, continued on Multaq, continued on regular sinus rhythm. Today, she is doing well. Regular sinus rhythm. Discussed the case with Dr. Moon. He is agreeable with discharge. Follow up with Dr. Zurita in one week. No procedures were done. Job ID: [id number]
== END 2018-12-14 18:45 | disposition home or self-care (01) | DRG 309 ==
LOC: ERS 18:25 → 2SW 23:01 → OBSVTOIN 12-11 08:09
PROVIDERS: ADMIT Hospitalist; ATTEND Hospitalist
DX: I48.0 Paroxysmal atrial fibrillation (principal); I24.8 Other forms of acute ischemic heart disease; E87.2 Acidosis; Z66 Do not resuscitate; I12.9 Hypertensive chronic kidney disease with stage 1 through stage 4 chronic kidney disease, or unspecified chronic kidney disease; E11.22 Type 2 diabetes mellitus with diabetic chronic kidney disease; E78.00 Pure hypercholesterolemia, unspecified; N18.3 Chronic kidney disease, stage 3 (moderate); I08.1 Rheumatic disorders of both mitral and tricuspid valves; E11.65 Type 2 diabetes mellitus with hyperglycemia; I25.10 Atherosclerotic heart disease of native coronary artery without angina pectoris; I73.9 Peripheral vascular disease, unspecified; Z90.49 Acquired absence of other specified parts of digestive tract; Z98.890 Other specified postprocedural states; Z79.01 Long term (current) use of anticoagulants; Z79.82 Long term (current) use of aspirin; Z79.84 Long term (current) use of oral hypoglycemic drugs; Z79.899 Other long term (current) drug therapy; Z87.891 Personal history of nicotine dependence
CPT/HCPCS: 36415; 36416; 71045; 80048; 80053; 80061; 81001; 82550; 83605; 83690; 83735; 83880; 84443; 84484; 85025; 87040; 93005; 93010; 93306; 96361; 96374; 96375; 96376; J1650; J2405; J7050; S0028

== ENCOUNTER 2021-04-16 13:40 | Inpatient (IN) | payer MEDICARE ==
[~2021-04-16 13:40] MED LIST: Iopamidol-370 76% 500 ML 1 ML ONE
[2021-04-16 14:35] LABS: #Eosinphils 0.4 thou/uL (0.0-0.7); #Lymphocytes 1.1 thou/uL (1.20-3.40); #Monocytes 0.3 thou/uL (0.11-0.59); #Neutrophils 4.2 thou/uL (1.40-6.50); %Basophils 0.8 % (0.0-1.0); %Eosinophils 6.5 % (0.0-10.0); %Lymphocytes 18.6 % (21.0-51.0); %Monocytes 4.7 % (0.0-10.0); %Neutrophils 69.4 % (42.0-75.0); Hemoglobin 11.6 g/dL (12.0-16.0); Mean Corpuscular HGB CONC 32.8 g/dL (32.0-36.0); Mean Corpuscular Hemoglobin 29.7 pg (27.0-31.0); Mean Corpuscular Volume 90.7 fL (78.0-98.0); Mean Platelet Volume 9.4 fL (7.4-10.4); Platelet Count 158 thou/uL (130-400); RBC Distribution Width 12.4 % (11.5-14.5); Red Blood Cell (RBC) Count 3.91 mill/uL (4.20-5.40); White Blood Cell (WBC) Count 6.1 thou/uL (4.8-10.8)
[2021-04-16 14:50] LABS: ALT (SGPT) 10 U/L (8-55); AST (SGOT) 15 U/L (5-34); Albumin 3.8 g/dL (3.4-4.8); Alkaline Phosphatase 88 U/L (40-110); Anion Gap 14 mmol/L (10-20); BUN (Urea Nitrogen) 21 mg/dL (9.8-20.1); Bilirubin, Total 0.4 mg/dL (0.2-1.2); Calc. Creatinine Clearance 0 mL/min (70-130); Calcium 9.2 mg/dL (7.8-10.44); Carbon Dioxide 20 mmol/L (23-31); Chloride 106 mmol/L (98-107); Glucose 267 mg/dL (83-110); Potassium 3.8 mmol/L (3.5-5.1); Protein, Total 6.8 g/dL (5.8-8.1); Sodium 136 mmol/L (136-145)
[2021-04-16] MEDS ORDERED: Acetaminophen 325 MG TAB PO PRN (23:15)
[2021-04-16] MEDS ORDERED: Ondansetron PF 4 MG/2 ML Vial IVP PRN (23:15)
[2021-04-16] MEDS ORDERED: Ondansetron ODT 4 MG TAB PO PRN (23:15)
[2021-04-16 23:52] LABS: #Eosinphils 0.4 thou/uL (0.0-0.7); #Lymphocytes 1.8 thou/uL (1.20-3.40); #Monocytes 0.4 thou/uL (0.11-0.59); #Neutrophils 3.4 thou/uL (1.40-6.50); %Basophils 0.8 % (0.0-1.0); %Eosinophils 6.9 % (0.0-10.0); %Lymphocytes 29.6 % (21.0-51.0); %Monocytes 6.1 % (0.0-10.0); %Neutrophils 56.6 % (42.0-75.0); Hemoglobin 10.5 g/dL (12.0-16.0); Mean Corpuscular HGB CONC 34.8 g/dL (32.0-36.0); Mean Corpuscular Hemoglobin 31.2 pg (27.0-31.0); Mean Corpuscular Volume 89.8 fL (78.0-98.0); Mean Platelet Volume 9.2 fL (7.4-10.4); Platelet Count 137 thou/uL (130-400); RBC Distribution Width 12.5 % (11.5-14.5); Red Blood Cell (RBC) Count 3.37 mill/uL (4.20-5.40)
[2021-04-17] MEDS: Sodium Chloride 0.9% 1,000 ML IV SCH ×4 (00:45→23:19)
[2021-04-17] MEDS ORDERED: Dextrose 50% Abboject 50 ML SYRINGE SLOW IVP PRN (02:13)
[2021-04-17] MEDS ORDERED: Dextrose 5% in Water 1,000 ML IV PRN (02:13)
[2021-04-17] MEDS ORDERED: HumaLOG 300 UNITS/3 ML VIAL SC PRN ×2 (02:13)
[2021-04-17 03:58] LABS: #Eosinphils 0.4 thou/uL (0.0-0.7); #Monocytes 0.3 thou/uL (0.11-0.59); #Neutrophils 3.7 thou/uL (1.40-6.50); %Basophils 0.6 % (0.0-1.0); %Eosinophils 6.8 % (0.0-10.0); %Lymphocytes 30.2 % (21.0-51.0); %Monocytes 5.1 % (0.0-10.0); %Neutrophils 57.3 % (42.0-75.0); Hemoglobin 9.9 g/dL (12.0-16.0); Mean Corpuscular HGB CONC 34.8 g/dL (32.0-36.0); Mean Corpuscular Hemoglobin 31.3 pg (27.0-31.0); Mean Corpuscular Volume 89.9 fL (78.0-98.0); Mean Platelet Volume 9.3 fL (7.4-10.4); Platelet Count 135 thou/uL (130-400); RBC Distribution Width 12.5 % (11.5-14.5); Red Blood Cell (RBC) Count 3.16 mill/uL (4.20-5.40); White Blood Cell (WBC) Count 6.5 thou/uL (4.8-10.8)
[2021-04-17 04:07] LABS: INR-International Normal Ratio 1.2; Prothrombin Time 15.2 sec (12.0-14.7)
[2021-04-17 04:13] LABS: Anion Gap 11 mmol/L (10-20); BUN (Urea Nitrogen) 19 mg/dL (9.8-20.1); Calc. Creatinine Clearance 0 mL/min (70-130); Calcium 8.9 mg/dL (7.8-10.44); Carbon Dioxide 22 mmol/L (23-31); Chloride 112 mmol/L (98-107); Glucose 131 mg/dL (83-110); Potassium 4.2 mmol/L (3.5-5.1); Sodium 141 mmol/L (136-145)
[2021-04-17 09:38] LABS: Hemoglobin 10.9 g/dL (12.0-16.0)
[2021-04-17 12:08] LABS: Hemoglobin 10.1 g/dL (12.0-16.0)
[2021-04-17 16:44] LABS: Hemoglobin 9.8 g/dL (12.0-16.0)
[2021-04-17] MEDS ORDERED: GoLYTELY 4,000 ml Bottle PO SCH (17:00)
[2021-04-17 17:26] VITALS: BMI 22.5
[2021-04-17 21:15] LABS: Hemoglobin 10.1 g/dL (12.0-16.0)
[2021-04-18] MEDS: Sodium Chloride 0.9% 1,000 ML IV SCH ×3 (05:15→15:18)
[2021-04-18 06:50] LABS: SARS-CoV-2 PCR by NAA Not Detected (NotDetected)
[2021-04-18] MEDS ORDERED: PROPOFOL 200 MG/20 ML VIAL ONE (08:30)
[2021-04-18] MEDS ORDERED: Promethazine HCl 25 MG/ML VIAL IM PRN (09:03)
[2021-04-18] MEDS ORDERED: Ondansetron HCl/PF 4 MG/2 ML Vial IVP PRN (09:03)
[2021-04-18] MEDS ORDERED: Ketorolac Tromethamine 30 MG/ML VIAL IVP PRN (09:03)
[2021-04-18] MEDS ORDERED: Promethazine HCl 25 MG/ML VIAL IVPB PRN (09:03)
[2021-04-18] MEDS ORDERED: Amlodipine 10 MG TAB PO SCH (12:45)
[2021-04-18] MEDS: Carvedilol 6.25 MG TAB PO SCH (17:10)
[2021-04-19] MEDS: Sodium Chloride 0.9% 1,000 ML IV SCH ×2 (06:20→15:53)
[2021-04-19 07:06] LABS: #Eosinphils 0.3 thou/uL (0.0-0.7); #Lymphocytes 1.5 thou/uL (1.20-3.40); #Monocytes 0.3 thou/uL (0.11-0.59); %Basophils 0.3 % (0.0-1.0); %Eosinophils 5.2 % (0.0-10.0); %Lymphocytes 29.5 % (21.0-51.0); Hemoglobin 8.5 g/dL (12.0-16.0); Mean Corpuscular HGB CONC 33.1 g/dL (32.0-36.0); Mean Corpuscular Hemoglobin 30.3 pg (27.0-31.0); Mean Corpuscular Volume 91.4 fL (78.0-98.0); Mean Platelet Volume 9.5 fL (7.4-10.4); Platelet Count 115 thou/uL (130-400); RBC Distribution Width 12.6 % (11.5-14.5); Red Blood Cell (RBC) Count 2.81 mill/uL (4.20-5.40); White Blood Cell (WBC) Count 5.1 thou/uL (4.8-10.8)
[2021-04-19] MEDS: Carvedilol 6.25 MG TAB PO SCH ×3 (08:51→16:29)
[2021-04-19] MEDS: Amlodipine 5 MG TAB PO SCH (08:51)
[2021-04-20 05:39] LABS: #Eosinphils 0.3 thou/uL (0.0-0.7); #Lymphocytes 1.4 thou/uL (1.20-3.40); #Monocytes 0.4 thou/uL (0.11-0.59); #Neutrophils 3.8 thou/uL (1.40-6.50); %Basophils 0.2 % (0.0-1.0); %Eosinophils 5.8 % (0.0-10.0); %Lymphocytes 23.7 % (21.0-51.0); %Monocytes 6.4 % (0.0-10.0); %Neutrophils 63.9 % (42.0-75.0); Hemoglobin 8.3 g/dL (12.0-16.0); Mean Corpuscular Hemoglobin 30.8 pg (27.0-31.0); Mean Corpuscular Volume 90.6 fL (78.0-98.0); Mean Platelet Volume 8.8 fL (7.4-10.4); Platelet Count 109 thou/uL (130-400); RBC Distribution Width 12.5 % (11.5-14.5); Red Blood Cell (RBC) Count 2.68 mill/uL (4.20-5.40)
[2021-04-20] MEDS: Carvedilol 6.25 MG TAB PO SCH (07:58)
[2021-04-20] MEDS: Amlodipine 5 MG TAB PO SCH (07:58)
[2021-04-20 11:21] VITALS: BP 148/84; TEMP 98.1
== END 2021-04-20 12:19 | disposition home or self-care (01) | DRG 377 ==
LOC: ERS 13:40 → ERHOLD 20:31 → T4-B 04-17 15:32 → OBSVTOIN 04-18 12:31
PROVIDERS: ADMIT Student in an Organized Health Care Education/Training Program; ATTEND Internal Medicine
PROC: 0W3P8ZZ Control Bleeding in Gastrointestinal Tract, Via Natural or Artificial Opening Endoscopic (ICD-10-PCS; principal; 2021-04-18)
PROC: 0DBK8ZZ Excision of Ascending Colon, Via Natural or Artificial Opening Endoscopic (ICD-10-PCS; 2021-04-18)
DX: K57.31 Diverticulosis of large intestine without perforation or abscess with bleeding (principal); R57.8 Other shock; D62 Acute posthemorrhagic anemia; Z20.822 Contact with and (suspected) exposure to COVID-19; I25.10 Atherosclerotic heart disease of native coronary artery without angina pectoris; E78.5 Hyperlipidemia, unspecified; I10 Essential (primary) hypertension; K64.4 Residual hemorrhoidal skin tags; E11.51 Type 2 diabetes mellitus with diabetic peripheral angiopathy without gangrene; K63.5 Polyp of colon; K46.9 Unspecified abdominal hernia without obstruction or gangrene; N28.1 Cyst of kidney, acquired; Z88.8 Allergy status to other drugs, medicaments and biological substances; Z79.899 Other long term (current) drug therapy; Z79.01 Long term (current) use of anticoagulants; Z90.49 Acquired absence of other specified parts of digestive tract; Z95.828 Presence of other vascular implants and grafts; Z79.82 Long term (current) use of aspirin; Z79.84 Long term (current) use of oral hypoglycemic drugs
CPT/HCPCS: 36415; 36416; 74177; 80048; 80053; 82274; 83690; 85025; 85610; 86850; 86900; 86901; 88305; 93005; 94760; G0378; J2704; Q9967; U0003; U0005

== ENCOUNTER 2023-09-02 11:10 | Outpatient (CLI) | payer MEDICARE | END 2023-09-02 11:11 | disposition home or self-care (01) | LOC: MRI 11:10 | PROVIDERS: ATTEND Neurological Surgery | DX: M25.551 Pain in right hip (principal); M47.26 Other spondylosis with radiculopathy, lumbar region; M47.817 Spondylosis without myelopathy or radiculopathy, lumbosacral region; M48.07 Spinal stenosis, lumbosacral region; M43.17 Spondylolisthesis, lumbosacral region; M53.86 Other specified dorsopathies, lumbar region; M48.8X8 Other specified spondylopathies, sacral and sacrococcygeal region; M16.11 Unilateral primary osteoarthritis, right hip; M25.451 Effusion, right hip; M48.061 Spinal stenosis, lumbar region without neurogenic claudication | CPT/HCPCS: 72148 ==